=== PATIENT | male | born 1930 | race Caucasian/White ===

== ENCOUNTER 2017-05-20 09:02 | Emergency (ER) | payer OTHER ==
[~2017-05-20] VITALS: Ht 170.2 cm; Wt 77.0 kg
[~2017-05-20 09:02] MED LIST: ALEN70TA30 PO; ASPI-664 PO; ATOR10TA65 PO; CALC600T24 PO; CHOL100062 PO; DIGO125T6 PO; MULTI PO; SERT50TA PO
[2017-05-20] MEDS ORDERED: SOD CHLORIDE 0.9% 500 ML IV STA (09:07)
[2017-05-20 09:32] VITALS: Ht 170.2 cm; Wt 77.0 kg
--- NOTE | 2017-05-20 09:57 | RADRPT ---
PROCEDURE: XR Chest. CLINICAL INDICATION: Dyspnea TECHNIQUE: Single frontal chest x-ray. COMPARISON: CR CHEST 04/17/2016 FINDINGS: Diffuse calcified pleural plaques are seen throughout the lungs bilaterally. Moderate right pleural effusion is seen with adjacent atelectasis, new in the interim. The cardiomediastinal silhouette is significantly enlarged, worse since the previous study. Aortic atherosclerotic vascular calcificati ons are identified. There is no pneumothorax. The osseous structures are notable for benign chronic senescent changes. IMPRESSION: 1. 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 2. Moderate right pleural effusion with adjacent atelectasis, new when compared to the prior study. 3. Marked cardiomegaly with aortic atherosclerotic vascular calcifications. 4. Scattered benign chronic senescent changes. RPTAT: PP .Edward Connelly MD, Date Time Electronically viewed and signed by .Edward Connelly MD, on 05/20/2017 09:57 .B/
[2017-05-20 10:08] LABS: BASOPHILS % 0.5 % (0.0-2.0); EOSINOPHILS # 0.2 10^3/ul (0.0-0.5); HEMATOCRIT 31.5 % (42.0-52.0); HEMOGLOBIN 10.3 g/dl (14.0-18.0); LYMPHOCYTES % 25.5 % (15.0-51.0); MEAN CORPUSCULAR HEMOGLOBIN 30.9 pg (29.0-33.0); MEAN CORPUSCULAR HGB CONC 32.7 g/dl (32.0-37.0); MEAN CORPUSCULAR VOLUME 94.6 fl (82.0-101.0); MEAN PLATELET VOLUME 11.2 fl (7.4-10.4); MONOCYTE # 0.5 10^3/ul (0.3-0.9); MONOCYTES % 11.8 % (0.0-11.0); NEUTROPHIL # 2.3 10^3/ul (1.6-7.5); NEUTROPHILS % 57.9 % (39.0-77.0); PLATELET COUNT 140 10^3/UL (140-415); RED BLOOD COUNT 3.33 10^6/ul (4.70-6.10); RED CELL DISTRIBUTION WIDTH 15.4 % (11.5-14.5)
--- NOTE | 2017-05-20 10:11 | RADRPT ---
PROCEDURE: CT Brain without contrast. CLINICAL INDICATION: Altered mental status TECHNIQUE: Routine CT scan of the brain was performed on a high resolution multi detector scanner without intravenous contrast. One or more of the following dose reduction techniques were used: Auto mated exposure control; Adjustment of the mA and/or kV according to patient size; Use of iterative r econstruction technique. CTDI = 44 mGy. DLP = 810 mGy-cm. DICOM images are available. COMPARISON: No prior relevant examinations are available for comparison. FINDINGS: Hemorrhage: No evidence of intracranial hemorrhage. Acute ischemic changes: No evidence of acute ischemic changes. Mass effect: None. Parenchymal volume: Within normal limits for age. Ventricular system: Concordant with parenchymal volume. Chronic changes: Small area of encephalomalacia involving the right temporal - occipital junction. T here are numerous and confluent areas of significant low attenuation change within the supratentoria l white matter most compatible with severe chronic microvascular ischemic changes. Atherosclerotic calcifications of the cavernous portions of both internal carotid arteries are prese nt. Extracranial soft tissues: Unremarkable. Calvarium: No fractures. Paranasal sinuses: Visualized paranasal sinuses are clear. Mastoid air cells: Visualized mastoid air cells are clear. IMPRESSION: No acute intracranial abnormalities. Severe chronic-appearing microvascular ischemic changes of the supratentorial white matter with smal l area of right temporal - occipital encephalomalacia are unchanged. MRI of the brain recommended for further evaluation. RPTAT: [facility]ADD .Ramin Mcclendon MD, Date Time Electronically viewed and signed by .Ramin Mcclendon MD, MD on 05/20/2017 10:11 .B/
[2017-05-20 10:29] LABS: ALBUMIN 3.2 g/dl (3.3-4.9); ALBUMIN/GLOBULIN RATIO 0.94; BILIRUBIN,INDIRECT 1.7 mg/dl (0-1.1); BILIRUBIN,TOTAL 1.7 mg/dl (0.2-1.3); CALCIUM 9.3 mg/dl (8.4-10.2); CREATININE 0.73 mg/dl (0.61-1.24); POTASSIUM 4.1 mmol/L (3.5-5.1); TOTAL PROTEIN 6.6 g/dl (6.1-8.1)
[2017-05-20 10:56] LABS: TROPONIN-I 0.017 ng/ml (0.00-0.12)
[2017-05-20 11:01] LABS: T3 UPTAKE 39.4 % (23.5-40.5)
[2017-05-20 11:39] LABS: ADD UMIC YES; UR AMORPHOUS CRYSTAL FEW /HPF (NONE SEEN); UR ASCORBIC ACID 20 mg/dL (NEGATIVE); UR BACTERIA FEW /HPF (NONE SEEN); UR BILIRUBIN (Dip) NEGATIVE (NEGATIVE); UR BLOOD (Dip) NEGATIVE (NEGATIVE); UR CLARITY CLOUDY (CLEAR); UR COLOR YELLOW (YELLOW); UR GLUCOSE (Dip) NEGATIVE (NEGATIVE); UR KETONES (Dip) TRACE mg/dL (NEGATIVE); UR LEUKOCYTE ESTERASE (Dip) NEGATIVE Leu/ul (NEGATIVE); UR NITRITE (Dip) NEGATIVE (NEGATIVE); UR RBC 1 /HPF (0-5); UR SPECIFIC GRAVITY (Dip) 1.016 (1.003-1.030); UR TOTAL PROTEIN (Dip) NEGATIVE (NEGATIVE); UR UROBILINOGEN (Dip) 1+ mg/dL (NEGATIVE)
[2017-05-20] MEDS ORDERED: CEFEPIME 2GM/50 ML (PMX) 50 ML IVPB STA (11:47)
[2017-05-20] MEDS ORDERED: SODIUM CHLORIDE 0.9% 1L BAG IV* STA (11:47)
[2017-05-20] MEDS ORDERED: VANCOMYCIN 1 GM (PMX) 250 ML IVPB ONE (12:00)
--- NOTE | 2017-05-20 12:23 | ERD ---
ER Documentation Chief Complaint Chief Complaint BIB RESCUE FOR NEW ONSET ABNORMAL BEHAVIOR. HPI This is an 86-year-old gentleman who presents to the emergency room because of abnormal behavior. [facility] They state that he has somewhat confused at baseline but occasionally has been pouring his cereal and breakfast over his head. The patient has no complaints. He denies any suicidal or homicidal ideation. No fevers or chills no chest pain or shortness of breath. The remainder of HPI is limited given the patient' s level of dementia. ROS All systems reviewed and are negative except as per history of present illness. Medications Home Meds Reported Medications Atorvastatin Calcium (Atorvastatin Calcium) 10 Mg Tablet, 10 MG PO QHS, #30 TAB 04/17/16 Calcium Carbonate* (Calcium Carbonate*) 600 MG Ca Tab, 1200 MG PO BID, TAB 04/17/16 Sertraline Hcl* (Zoloft*) 50 Mg Tablet, 50 MG PO DAILY, #30 TAB 04/17/16 Aspirin (Low Dose Aspirin) 81 Mg Tablet.dr, 81 MG PO DAILY, #30 TAB 04/17/16 Cholecalciferol* (Vitamin D3*) 1,000 Unit Tablet, 1000 UNIT PO DAILY, TAB 04/17/16 Multivitamins* (Theragran*) 1 Tab Tab, 1 TAB PO DAILY, TAB 04/17/16 Digoxin* (Lanoxin*) 0.125 Mg Tablet, 0.125 MG PO DAILY, TAB 04/17/16 Alendronate Sodium* (Fosamax*) 70 Mg Tablet, 70 MG PO Q7D, #4 TAB 04/17/16 Allergies Allergies: Coded Allergies: No Known Allergy (Unverified , 04/17/16) PMhx/Soc History of Surgery: No Anesthesia Reaction: No Hx Neurological Disorder: No Hx Respiratory Disorders: No Hx Cardiac Disorders: No (ht/, high cholesterol, AFIB) Hx Psychiatric Problems: Yes (ANXIETY) Hx Miscellaneous Medical Probl: No Hx Alcohol Use: No Hx Substance Use: No Hx Tobacco Use: No Smoking Status: Never smoker FmHx Family History: No diabetes Physical Exam Vitals Vital Signs Date Time Temp Pulse Resp B/P Pulse Ox O2 Delivery O2 Flow Rate FiO2 05/20/17 11:29 94.8 72 12 150/95 100 Nasal Cannula 2.0 05/20/17 09:51 Nasal Cannula 2 05/20/17 09:32 94.0 78 17 144/83 96 Physical Exam General: Well developed, well nourished, no acute distress Head: Normocephalic, atraumatic. Eyes: Pupils equally reactive, EOM intact ENT: Moist mucous membranes Neck: Supple, no lymphadenopathy Respiratory: Scant rhonchi bilaterally, no distress Cardiovascular: RRR, no murmurs, rubs, or gallops Abdominal: Soft, non-tender, non-distended, no peritoneal signs : Deferred MSK: No edema, no unilateral swelling, 5/5 strength Neurologic: Alert and oriented 2 which appears to be his baseline moving all extremities, normal speech, no focal weakness, no cerebellar signs Skin: No rash Psych: Normal mood Result Diagram: 05/20/1793905/20/17 09 Results 24 hrs Laboratory Tests Test 05/20/17 09:40 05/20/17 10:40 White Blood Count 4.010^3/ul Red Blood Count 3.3310^6/ul Hemoglobin 10.3g/dl Hematocrit 31.5% Mean Corpuscular Volume 94.6fl Mean Corpuscular Hemoglobin 30.9pg Mean Corpuscular Hemoglobin Concent 32.7g/dl Red Cell Distribution Width 15.4% Platelet Count 00753^3/UL Mean Platelet Volume 11.2fl Neutrophils % 57.9% Lymphocytes % 25.5% Monocytes % 11.8% Eosinophils % 4.0% Basophils % 0.5% Nucleated Red Blood Cells % 0.0/100WBC Neutrophils # 2.310^3/ul Lymphocytes # 1.010^3/ul Monocytes # 0.510^3/ul Eosinophils # 0.210^3/ul Basophils # 0.010^3/ul Nucleated Red Blood Cells # 0.010^3/ul Sodium Level 137mmol/L Potassium Level 4.1mmol/L Chloride Level 100mmol/L Carbon Dioxide Level 30mmol/L Anion Gap 11 Blood Urea Nitrogen 29mg/dl Creatinine 0.73mg/dl Glucose Level 70mg/dl Lactic Acid Level 1.1mmol/L Calcium Level 9.3mg/dl Total Bilirubin 1.7mg/dl Direct Bilirubin 0.00mg/dl Indirect Bilirubin 1.7mg/dl Aspartate Amino Transf (AST/SGOT) 69IU/L Alanine Aminotransferase (ALT/SGPT) 85IU/L Alkaline Phosphatase 107IU/L Troponin I 0.017ng/ml Total Protein 6.6g/dl Albumin 3.2g/dl Globulin 3.40g/dl Albumin/Globulin Ratio 0.94 Free Thyroxine Index 3.55ug/ml Thyroxine (T4) 9.0ug/dl Triiodothyronine (T3) Uptake 39.4% Digoxin Level 0.8ng/ml Urine Color YELLOW Urine Clarity CLOUDY Urine pH 7.0 Urine Specific [place] 1.016 Urine Ketones TRACEmg/dL Urine Nitrite NEGATIVEmg/dL Urine Bilirubin NEGATIVEmg/dL Urine Urobilinogen 1+mg/dL Urine Leukocyte Esterase NEGATIVELeu/ul Urine Microscopic RBC 1/HPF Urine Microscopic WBC 2/HPF Urine Amorphous Crystals FEW/HPF Urine Bacteria FEW/HPF Urine Hemoglobin NEGATIVEmg/dL Urine Glucose NEGATIVEmg/dL Urine Total Protein NEGATIVEmg/dl Current Medications Medications (Trade) Dose Ordered Sig/Carlos Route PRN Reason Start Time Stop Time Status Last Admin Dose Admin Sodium Chloride (NS) 500 ml @ 500 mls/hr Q1H STAT IV 05/20/17 09:07 05/20/17 10:06 DC 05/20/17 10:11 Sodium Chloride 2390 ml 2,390 ml BOLUS OVER 2 HOURS STAT IV* 05/20/17 11:47 05/20/17 11:49 DC 05/20/17 11:53 Cefepime HCl 50 ml @ 100 mls/hr ONCE STAT IVPB 05/20/17 11:47 05/20/17 12:16 DC 05/20/17 11:50 Vancomycin HCl (Vancocin) 250 ml @ 125 mls/hr ONCE ONCE IVPB 05/20/17 12:00 05/20/17 13:59 05/20/17 12:42 Procedures/MDM EKG, MONITORS, & DIAGNOSTIC IMAGING: EKG: I reviewed and interpreted a 12-lead EKG. Rhythm: Atrial fibrillation, rate controlled Ectopy: None Intervals: No abnormalities ST segments: No elevations or depressions T waves: No contiguous inversions Chest x-ray: IMPRESSION: 1. 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 2. Moderate right pleural effusion with adjacent atelectasis, new when compared to the prior study. 3. Marked cardiomegaly with aortic atherosclerotic vascular calcifications. 4. Scattered benign chronic senescent changes. RPTAT: PP CT IMPRESSION: No acute intracranial abnormalities. Severe chronic-appearing microvascular ischemic changes of the supratentorial white matter with small area of right temporal - occipital encephalomalacia are unchanged. MRI of the brain recommended for further evaluation. RPTAT: AADD LAB INTERPRETATION: Leukopenia of 4.0, anemia of 10.3, platelets 140, normal lactic acid of 1.1, negative troponin, normal creatinine, normal thyroid panel MEDICAL DECISION MAKING: The patient presents with odd behavior. He has evidence of hypothermia. The patient has atrial fibrillation that is rate controlled. It was noticed that the patient does take digoxin though it was not on his initial med list from the jail [facility]. This was added on as the patient has occasional bradycardia into the 40s and 50s but is rate controlled. He is hemodynamically stable during these timeframes. The patient has a normal lactic acid but does have Sirs criteria with leukopenia. He has an abnormal chest x-ray which could represent pneumonia. The patient will be given empiric antibiotics. Blood cultures taken prior to antibiotics. 30 cc/kg bolus of saline provided. ER COURSE: Patient remains hemodynamically stable. A bear hugger provided. The patient was given antibiotics. He is hemodynamically stable with a normal lactic acid. No evidence of endorgan dysfunction. The patient will be treated as sepsis but no criteria for severe sepsis. The patient will be admitted for further management. He is a [place] [facility] member in stable for transfer. I kept the patient and/or family informed of laboratory and diagnostic imaging results throughout the emergency room course. DISPOSITION PLAN: Transfer to [place] [facility] CONSULTATION: Accepting care team and consultations: I discussed the current laboratory data, diagnostic imaging and emergency care provided. Admitting team: Dr. Larson, authorization #[id number] Admitting team indication: Insurance directed The patient has Sirs criteria with potential source but no evidence of severe sepsis. No volume reassessment required Departure Diagnosis: Primary Impression: Altered level of consciousness Additional Impressions: Healthcare-associated pneumonia Atrial fibrillation Atrial fibrillation type: chronic Qualified Code: I48.2 - Chronic atrial fibrillation Sepsis Sepsis type: sepsis due to unspecified organism Qualified Code: A41.9 - Sepsis, due to unspecified organism Condition: Stable VELMA AMBRIZ MD May 20, 2017 12:23
[2017-05-20 15:50] VITALS: BP 127/87; PULSE 86; RESP 13; TEMP 96.8
== END 2017-05-20 17:27 | disposition short-term general hospital (02) ==
LOC: E/R 09:02
DX: A41.9 Sepsis, unspecified organism (principal); J18.9 Pneumonia, unspecified organism; I48.2 Chronic atrial fibrillation; Z79.82 Long term (current) use of aspirin
CPT/HCPCS: 36415; 51702; 70450; 71010; 80053; 80162; 81001; 83605; 84436; 84479; 84484; 85025; 87040; 87086; 87400; 93005; 96374; 96375; 99285; J7030; J7040